=== PATIENT | male | born 1970 | race Caucasian/White ===

== ENCOUNTER 2016-09-10 23:32 | Emergency (ER) | payer OTHER ==
[~2016-09-10] VITALS: Ht 177.8 cm; Wt 90.7 kg
[2016-09-10] MEDS ORDERED: ATEN50TA PO (23:45)
[2016-09-10] MEDS ORDERED: LOSA1TAB36 PO (23:45)
[2016-09-11] MEDS ORDERED: SULFAMETH/TRIMETH 800/160 MG TABLET PO ONE (01:15)
[2016-09-11] MEDS ORDERED: HYDROCODONE/APAP 5-325MG TABLET PO ONE (01:15)
--- NOTE | 2016-09-11 01:20 | NUR ---
Patient discharged to home in stable conditonB WITH TAKING PT HOME. Written and verbal after care instructions given. Patient verbalizes understanding of instructions. WALKED OUT OF ER WITH STEADY GAIT WITH NO DISTRESS NOTED
[2016-09-11 01:21] VITALS: BP 122/95
[2016-09-11] MEDS ORDERED: HYDROCODONE/APAP 5-325MG TABLET ONE (01:23)
[2016-09-11] MEDS ORDERED: SULFAMETH/TRIMETH 800/160 MG TABLET ONE (01:23)
== END 2016-09-11 01:21 | disposition home or self-care (01) ==
LOC: ER 23:32
DX: M77.11 Lateral epicondylitis, right elbow (principal); L73.9 Follicular disorder, unspecified; I10 Essential (primary) hypertension
CPT/HCPCS: 99283; A4663

== ENCOUNTER 2017-07-03 17:11 | Emergency (ER) | payer MEDICAID, OTHER ==
[~2017-07-03] VITALS: Ht 177.8 cm; Wt 90.7 kg
[~2017-07-03 17:11] MED LIST: ATEN50TA PO; LOSA1TAB36 PO
[2017-07-03] MEDS ORDERED: AMLODIPINE BESYLATE 10 MG TAB (17:26)
--- NOTE | 2017-07-03 17:43 | NUR ---
Patient discharged to home in stable conditon. Written and verbal after care instructions given. Patient verbalizes understanding of instructions.PT WALKS IN STEADY GAIT, DENESI ANY HEADACHE OR DIZZINESS.
== END 2017-07-03 17:44 | disposition home or self-care (01) ==
LOC: ER 17:12
DX: Z76.0 Encounter for issue of repeat prescription (principal); I10 Essential (primary) hypertension
CPT/HCPCS: 99283; A4663

== ENCOUNTER 2017-10-21 17:51 | Emergency (ER) | payer MEDICAID ==
[~2017-10-21] VITALS: Ht 406.4 cm; Wt 90.7 kg
[~2017-10-21 17:51] MED LIST changes: +AMLODIPINE BESYLATE 10 MG TAB PO
--- NOTE | 2017-10-21 19:21 | NUR ---
NO ANSWER X 3
== END 2017-10-21 19:24 | disposition left against medical advice (07) ==
LOC: ER 17:53
DX: Z53.21 Procedure and treatment not carried out due to patient leaving prior to being seen by health care provider (principal)
CPT/HCPCS: A4663

== ENCOUNTER 2020-03-01 19:33 | Emergency (ER) | payer MEDICAID ==
[~2020-03-01] VITALS: Ht 177.8 cm; Wt 90.7 kg
[2020-03-01] MEDS ORDERED: [UNRECOGNIZED DRUG - REMARK] (19:46)
[2020-03-01] MEDS ORDERED: LIDOCAINE 1%-EPI 1:100,000 20 ML VIAL TP ONE (20:15)
--- NOTE | 2020-03-01 20:29 | NUR ---
Patient eloped from facility. ER physician notified.
== END 2020-03-01 20:33 | disposition left against medical advice (07) ==
LOC: ER 19:33
DX: L02.211 Cutaneous abscess of abdominal wall (principal); I10 Essential (primary) hypertension; Z79.899 Other long term (current) drug therapy
CPT/HCPCS: A4663